=== PATIENT | female | born 2000 | race Caucasian/White ===

== ENCOUNTER 2018-10-20 20:32 | Inpatient (IN) ==
[2018-10-20] MEDS ORDERED: PENICILLIN G POTASSIUM 6 MU in DEXTROSE 5% 250 ML IV STA (20:55)
[2018-10-20] MEDS ORDERED: OXYTOCIN 30 UNITS/500 ML BAG IV PRN (20:55)
--- NOTE | 2018-10-20 21:02 | Obstetrical Progress Note ---
Date of Service October 20, 2018 Subjective Admit Note 18 F P0000 at 40 weeks admitted in labor. Cervix 4-5/80/- 2/intact/anterior/vertex. GBS is positive. FHT Cat 1. EFW is 7 lbs. Will admit in active labor.
[2018-10-20 21:21] LABS: Hematocrit (blood only) 37.1 % (37-47); Hemoglobin 12.5 g/dL (12.0-16.0); Mean Corpuscular Volume 95.1 fL (80-100); Mean Platelet Volume 10.3 fL (7.4-10.4); Platelet Count 196 K/uL (130-400); RDW Coefficient of Variation 14.1 % (11.5-14.5); RDW Standard Deviation 48.8 fL (36.4-46.3); White Blood Count 12.03 K/uL (4.8-10.8)
[2018-10-20 21:22] LABS: Mean Corpuscular Hgb Conc 33.7 g/dL (32-36)
[2018-10-20] MEDS: LACTATED RINGER'S 1,000 ML IV PRN (21:49)
--- NOTE | 2018-10-20 22:28 | Anesthesiology Consultation ---
Date of Service October 20, 2018 Assessment & Plan (1) Encounter for pre-operative examination: Chart Review Chart Review: Patient NOT seen in Pre Admission Testing and Acceptable Risk for Labor Epidural Consults Requested none ASA ASA2 Proposed Anesthesia Anesthesia Type: Labor Epidural Risk / Benefits Reviewed With: PT / POA / Parent / Guardian, Accepts Plan and Informed Consent Obtained Additional Notes Pt understands that she is at increased risk of complications due to the history of scoliosis repair. She is willing to accept those risks and is requesting epidural placement. History Height/Weight Height: 5 ft 3 in Weight: 61.689 kg Allergies Allergy/AdvReac Type Severity Reaction Status Date / Time pollen extracts Allergy Unknown sneezing Verified 02/28/18 17:24 running nose ragweed pollen Allergy Unknown itching Verified 02/28/18 17:24 eyes hydromorphone AdvReac Unknown vomiting Verified 10/20/18 21:03 Medications Home Medications Medication Instructions Recorded Confirmed Last Taken PNV cmb#95-ferrous fumarate-FA 1 tab PO DAILY 02/28/18 10/20/18 1 Day Ago [] ~10/19/18 pyridoxine (vitamin B6) [Vitamin 100 mg PO DAILY 02/28/18 10/20/18 Unknown B-6] ferrous sulfate 325 mg PO BID 10/20/18 10/20/18 1 Day Ago ~10/19/18 ondansetron HCl [Zofran] 4 mg PO BID PRN 10/20/18 10/20/18 3 Months Ago ~07/20/18 sertraline [Zoloft] 50 mg PO DAILY 10/20/18 10/20/18 1 Day Ago ~10/19/18 Active Medications Generic Name Dose Route Start Last Admin Trade Name Freq PRN Reason Stop Dose Admin Lactated Ringer's 1,000 mls @ 125 mls/hr 10/20/18 20:55 10/20/18 21:49 Lr IV 10/22/18 20:54 125 mls/hr .Q8H PRN Administration L&D Protocol Protocol NPO Date Last Intake of Fluids: 10/20/18 Time Last Intake of Fluids: 22:40 Date Last Intake of Solids: 10/20/18 Time Last Intake of Solids: 14:00 Past Medical History Medical History Scoliosis (Chronic) Depression Exercise / Class Metabolic Activity II 4-5 Yardwork/Stairs/Walk up hill Negative for chest pain or shortness of breath. Past Surgical History Surgical History History of back surgery Past Anesthesia History No Hx of Anesthesia Complications History of PONV No Hx of PONV and No Hx of Motion Sickness Social History Smoking Status: Never smoker Do You Dip or Chew Tobacco: No Hx Alcohol Use: No Hx Substance Use: No substance use type: does not use Review of Systems history of rods placed for scoliosis - xrays not available Patient denies history of abnormal bleeding or bleeding disorder. Patient denies active use of anticoagulants other than low dose aspirin. Patient denies numbness, tingling or weakness in lower extremities. Physical Exam Vital Signs Last Vital Signs Temp 36.5 C 10/20/18 21:03 Resp 18 10/20/18 21:03 Constitutional not obese (Gravid uterus) ENMT Mouth: no TMJ abnormality and oral opening not small Thyromental Distance: > or= 3.5 Finger Breadths Mallampati Class: II Neck normal visual inspection; neck extension not limited Respiratory normal respiratory effort Auscultation: lungs clear to auscultation bilaterally Cardiovascular Rate/Rhythm: regular rate and regular rhythm Heart Sounds: no murmur Neurologic moves all extremities Motor/Sensory: no sensory deficit Psychiatric Orientation: alert and oriented x 3 Testing Laboratory Results 10/20/18 21:05
[2018-10-20] MEDS ORDERED: NALBUPHINE HCL INJ 10 MG/ML AMP IV PRN (23:21)
[2018-10-20] MEDS ORDERED: DiphenhydrAMINE HCL 50 MG/ML VIAL IV PRN (23:21)
[2018-10-20] MEDS ORDERED: ePHEDrine sulfate 50 MG/ML AMP IV PRN (23:21)
[2018-10-20] MEDS ORDERED: NALOXONE HCL 1 MG in SODIUM CHLORIDE 0.9% 1000ML 1,000 ML IV PRN (23:21)
[2018-10-20] MEDS ORDERED: ONDANSETRON INJ 2 MG/ML 2 ML VIAL IV PRN (23:21)
[2018-10-20] MEDS ORDERED: fentaNYL 2MCG/ML ROPIV 1.25MG/ML 100 ML BAG EPI PRN (23:21)
[2018-10-20] MEDS ORDERED: NALOXONE HCL 0.4 MG/1 ML VIAL/CARP IV PRN (23:21)
[2018-10-20] MEDS ORDERED: fentaNYL citrate 100 MCG/2 ML VIAL ONE (23:25)
[2018-10-20] MEDS ORDERED: ePHEDrine sulfate 50 MG/ML AMP ONE (23:25)
[2018-10-20] MEDS ORDERED: BUPIVACAINE 0.25% 30 ML VIAL ONE (23:25)
[2018-10-20] MEDS ORDERED: fentaNYL 2MCG/ML ROPIV 1.25MG/ML 100 ML BAG EPI ONE (23:26)
[2018-10-21] MEDS ORDERED: CALCIUM CARBONATE 500 MG CHEWABLE TAB PO PRN (00:33)
[2018-10-21] MEDS ORDERED: CALCIUM CARBONATE 500 MG CHEWABLE TAB ONE (00:39)
[2018-10-21] MEDS: PENICILLIN G POTASSIUM 3 MU in DEXTROSE 5% 100 ML IV PRN ×3 (01:45→09:41)
--- NOTE | 2018-10-21 02:33 | Obstetrical Progress Note ---
Date of Service October 21, 2018 Physical Exam Genitourinary: Manual OB Exam: + cervical dilation 6 cm, + cervical effacement 100%, + station -1 and + amniotic fluid clear OB Exam Monitor Tracing: + external FHT monitor used, + external uterine monitor used, + category I and + normal FHT variability AROM with amni-hook clear fluid Results & Data Vital Signs (Past 12 Hours) Vital Signs Temp Pulse Resp BP Pulse Ox 10/21/18 02:30 64 123/69 10/21/18 02:28 78 95 10/21/18 02:23 63 96 10/21/18 02:18 62 96 10/21/18 02:14 64 106/58 L 10/21/18 02:13 64 96 10/21/18 02:08 65 96 10/21/18 02:03 66 96 10/21/18 01:59 67 110/58 L 10/21/18 01:58 69 97 10/21/18 01:53 75 98 10/21/18 01:48 72 97 10/21/18 01:46 78 106/55 L 10/21/18 01:43 66 96 10/21/18 01:38 72 96 10/21/18 01:33 81 97 10/21/18 01:30 36.9 C 67 18 110/57 L 10/21/18 01:28 67 96 10/21/18 01:23 70 97 10/21/18 01:18 70 98 10/21/18 01:01 74 102/56 L 10/21/18 01:00 64 18 96 10/21/18 00:55 69 96 10/21/18 00:50 68 97 10/21/18 00:45 82 97 10/21/18 00:44 84 105/59 L 10/21/18 00:40 73 97 10/21/18 00:35 75 97 10/21/18 00:30 78 96 10/21/18 00:29 81 106/57 L 10/21/18 00:25 73 97 10/21/18 00:20 75 97 10/21/18 00:16 78 114/57 L 10/21/18 00:15 73 18 97 10/21/18 00:10 97 H 98 10/21/18 00:05 101 H 99 10/21/18 00:00 82 97 10/20/18 23:59 83 94/55 L 10/20/18 23:58 18 10/20/18 23:55 95 H 99 10/20/18 23:50 92 H 97 10/20/18 23:46 88 98/55 L 10/20/18 23:45 91 H 96 10/20/18 23:40 36.9 C 88 18 96 10/20/18 23:35 103 H 97 10/20/18 23:30 89 97 10/20/18 23:28 93 H 98/54 L 10/20/18 23:25 95 H 96 10/20/18 23:23 100 H 106/52 L 10/20/18 23:20 92 H 96 10/20/18 23:18 86 111/57 L 10/20/18 23:15 92 H 97 10/20/18 23:13 83 112/58 L 10/20/18 23:10 88 97 10/20/18 23:05 101 H 96 10/20/18 23:00 89 97 10/20/18 22:55 108 H 96 10/20/18 22:50 81 97 10/20/18 22:45 143 H 97 10/20/18 21:03 36.5 C 18
[2018-10-21] MEDS: LACTATED RINGER'S 1,000 ML IV PRN ×2 (06:46→09:09)
[2018-10-21] MEDS ORDERED: OXYTOCIN 30 UNITS/500 ML BAG IV PRN ×2 (07:29→12:28)
--- NOTE | 2018-10-21 07:29 | Obstetrical Progress Note ---
Date of Service October 21, 2018 Subjective Patient is seen and examined She is a 18 yo AT 40.1 wks, admitted last night for labor Received epidural for pain GBS +, received 3 doses of PCN by now VSS Afebrile Comfortable VE: 7/ 70%/ 0 to +1, coned head FHR categ I [place]: q3-4 min Plan to monitor, augment with pitocin of no change in cervix All questions were answered Results & Data Vital Signs (Past 12 Hours) Vital Signs Temp Pulse Resp BP Pulse Ox 10/21/18 07:23 77 98 10/21/18 07:18 79 97 10/21/18 07:13 87 97 10/21/18 07:08 78 97 10/21/18 07:03 69 97 10/21/18 07:00 73 108/57 L 10/21/18 06:58 74 97 10/21/18 06:53 92 H 96 10/21/18 06:48 82 96 10/21/18 06:43 81 96 10/21/18 06:38 71 99 10/21/18 06:33 67 100 10/21/18 06:30 36.4 C L 77 18 95/53 L 10/21/18 06:28 72 99 10/21/18 06:23 82 99 10/21/18 06:18 85 99 10/21/18 06:13 74 99 10/21/18 06:08 86 100 10/21/18 06:03 79 99 10/21/18 06:01 54 L 101/55 L 10/21/18 05:58 58 L 99 10/21/18 05:53 62 99 10/21/18 05:48 60 99 10/21/18 05:43 70 100 10/21/18 05:38 59 L 99 10/21/18 05:33 56 L 99 10/21/18 05:29 59 L 105/59 L 10/21/18 05:28 58 L 99 10/21/18 05:23 53 L 99 10/21/18 05:18 60 99 10/21/18 05:14 59 L 103/57 L 10/21/18 05:13 59 L 99 10/21/18 05:08 67 99 10/21/18 05:03 57 L 99 10/21/18 05:00 53 L 108/59 L 10/21/18 04:58 69 99 10/21/18 04:53 71 99 10/21/18 04:48 92 H 98 10/21/18 04:45 36.8 C 68 18 92/54 L 10/21/18 04:43 63 98 10/21/18 04:38 72 99 10/21/18 04:33 66 98 10/21/18 04:30 68 85/51 L 10/21/18 04:28 67 98 10/21/18 04:23 72 98 10/21/18 04:18 61 98 10/21/18 04:14 61 100/52 L 10/21/18 04:13 61 98 10/21/18 04:08 61 98 10/21/18 04:03 59 L 98 10/21/18 04:00 56 L 103/52 L 10/21/18 03:58 56 L 98 10/21/18 03:53 60 99 10/21/18 03:48 60 98 10/21/18 03:46 59 L 102/54 L 10/21/18 03:43 59 L 98 10/21/18 03:38 57 L 99 10/21/18 03:33 56 L 99 10/21/18 03:29 57 L 105/57 L 10/21/18 03:28 57 L 98 10/21/18 03:23 63 96 10/21/18 03:18 62 96 10/21/18 03:14 57 L 98/53 L 10/21/18 03:13 61 95 10/21/18 03:08 62 96 10/21/18 03:03 62 96 10/21/18 03:00 36.9 C 63 18 103/57 L 10/21/18 02:58 62 95 10/21/18 02:53 66 96 10/21/18 02:48 61 96 10/21/18 02:44 60 106/55 L 10/21/18 02:43 63 96 10/21/18 02:38 77 96 10/21/18 02:33 72 96 10/21/18 02:30 64 123/69 10/21/18 02:28 78 95 10/21/18 02:23 63 96 10/21/18 02:18 62 96 10/21/18 02:14 64 106/58 L 10/21/18 02:13 64 96 10/21/18 02:08 65 96 10/21/18 02:03 66 96 10/21/18 01:59 67 110/58 L 10/21/18 01:58 69 97 10/21/18 01:53 75 98 10/21/18 01:48 72 97 10/21/18 01:46 78 106/55 L 10/21/18 01:43 66 96 10/21/18 01:38 72 96 10/21/18 01:33 81 97 10/21/18 01:30 36.9 C 67 18 110/57 L 10/21/18 01:28 67 96 10/21/18 01:23 70 97 10/21/18 01:18 70 98 10/21/18 01:01 74 102/56 L 10/21/18 01:00 64 18 96 10/21/18 00:55 69 96 10/21/18 00:50 68 97 10/21/18 00:45 82 97 10/21/18 00:44 84 105/59 L 10/21/18 00:40 73 97 10/21/18 00:35 75 97 10/21/18 00:30 78 96 10/21/18 00:29 81 106/57 L 10/21/18 00:25 73 97 10/21/18 00:20 75 97 10/21/18 00:16 78 114/57 L 10/21/18 00:15 73 18 97 10/21/18 00:10 97 H 98 10/21/18 00:05 101 H 99 10/21/18 00:00 82 97 10/20/18 23:59 83 94/55 L 10/20/18 23:58 18 10/20/18 23:55 95 H 99 10/20/18 23:50 92 H 97 10/20/18 23:46 88 98/55 L 10/20/18 23:45 91 H 96 10/20/18 23:40 36.9 C 88 18 96 10/20/18 23:35 103 H 97 10/20/18 23:30 89 97 10/20/18 23:28 93 H 98/54 L 10/20/18 23:25 95 H 96 10/20/18 23:23 100 H 106/52 L 10/20/18 23:20 92 H 96 10/20/18 23:18 86 111/57 L 10/20/18 23:15 92 H 97 10/20/18 23:13 83 112/58 L 10/20/18 23:10 88 97 10/20/18 23:05 101 H 96 10/20/18 23:00 89 97 10/20/18 22:55 108 H 96 10/20/18 22:50 81 97 10/20/18 22:45 143 H 97 10/20/18 21:03 36.5 C 18
--- NOTE | 2018-10-21 08:26 | Obstetrical Progress Note ---
Date of Service October 21, 2018 Subjective FHR had decel to low 90-100's, still good variability and accels IVF bolus and Nasal O2 stared VE; unchanged, FSE applied, FHR had accel with scalp stimulation and good variability Mcclure catheter is placed Continue to monitor closely Results & Data Vital Signs (Past 12 Hours) Vital Signs Temp Pulse Resp BP Pulse Ox 10/21/18 08:18 75 97 10/21/18 08:13 88 98 10/21/18 08:08 81 97 10/21/18 08:03 75 98 10/21/18 08:00 77 112/57 L 10/21/18 07:58 71 97 10/21/18 07:53 70 97 10/21/18 07:48 85 98 10/21/18 07:43 70 97 10/21/18 07:38 81 98 10/21/18 07:33 75 97 10/21/18 07:31 75 116/57 L 10/21/18 07:28 81 99 10/21/18 07:23 77 98 10/21/18 07:18 79 97 10/21/18 07:13 87 97 10/21/18 07:08 78 97 10/21/18 07:05 36.4 C L 18 10/21/18 07:03 69 97 10/21/18 07:00 73 108/57 L 10/21/18 06:58 74 97 10/21/18 06:53 92 H 96 10/21/18 06:48 82 96 10/21/18 06:43 81 96 10/21/18 06:38 71 99 10/21/18 06:33 67 100 10/21/18 06:30 36.4 C L 77 18 95/53 L 10/21/18 06:28 72 99 10/21/18 06:23 82 99 10/21/18 06:18 85 99 10/21/18 06:13 74 99 10/21/18 06:08 86 100 10/21/18 06:03 79 99 10/21/18 06:01 54 L 101/55 L 10/21/18 05:58 58 L 99 10/21/18 05:53 62 99 10/21/18 05:48 60 99 10/21/18 05:43 70 100 10/21/18 05:38 59 L 99 10/21/18 05:33 56 L 99 08/06/19 05:29 59 L 105/59 L 10/21/18 05:28 58 L 99 10/21/18 05:23 53 L 99 10/21/18 05:18 60 99 10/21/18 05:14 59 L 103/57 L 10/21/18 05:13 59 L 99 10/21/18 05:08 67 99 10/21/18 05:03 57 L 99 10/21/18 05:00 53 L 108/59 L 10/21/18 04:58 69 99 10/21/18 04:53 71 99 10/21/18 04:48 92 H 98 10/21/18 04:45 36.8 C 68 18 92/54 L 10/21/18 04:43 63 98 10/21/18 04:38 72 99 10/21/18 04:33 66 98 10/21/18 04:30 68 85/51 L 10/21/18 04:28 67 98 10/21/18 04:23 72 98 10/21/18 04:18 61 98 10/21/18 04:14 61 100/52 L 10/21/18 04:13 61 98 10/21/18 04:08 61 98 10/21/18 04:03 59 L 98 10/21/18 04:00 56 L 103/52 L 10/21/18 03:58 56 L 98 10/21/18 03:53 60 99 10/21/18 03:48 60 98 10/21/18 03:46 59 L 102/54 L 10/21/18 03:43 59 L 98 10/21/18 03:38 57 L 99 10/21/18 03:33 56 L 99 10/21/18 03:29 57 L 105/57 L 10/21/18 03:28 57 L 98 10/21/18 03:23 63 96 10/21/18 03:18 62 96 10/21/18 03:14 57 L 98/53 L 10/21/18 03:13 61 95 10/21/18 03:08 62 96 10/21/18 03:03 62 96 10/21/18 03:00 36.9 C 63 18 103/57 L 10/21/18 02:58 62 95 10/21/18 02:53 66 96 10/21/18 02:48 61 96 10/21/18 02:44 60 106/55 L 10/21/18 02:43 63 96 10/21/18 02:38 77 96 10/21/18 02:33 72 96 10/21/18 02:30 64 123/69 10/21/18 02:28 78 95 10/21/18 02:23 63 96 10/21/18 02:18 62 96 10/21/18 02:14 64 106/58 L 10/21/18 02:13 64 96 10/21/18 02:08 65 96 10/21/18 02:03 66 96 10/21/18 01:59 67 110/58 L 10/21/18 01:58 69 97 10/21/18 01:53 75 98 10/21/18 01:48 72 97 10/21/18 01:46 78 106/55 L 10/21/18 01:43 66 96 10/21/18 01:38 72 96 10/21/18 01:33 81 97 10/21/18 01:30 36.9 C 67 18 110/57 L 10/21/18 01:28 67 96 10/21/18 01:23 70 97 10/21/18 01:18 70 98 10/21/18 01:01 74 102/56 L 10/21/18 01:00 64 18 96 10/21/18 00:55 69 96 10/21/18 00:50 68 97 10/21/18 00:45 82 97 10/21/18 00:44 84 105/59 L 10/21/18 00:40 73 97 10/21/18 00:35 75 97 10/21/18 00:30 78 96 10/21/18 00:29 81 106/57 L 10/21/18 00:25 73 97 10/21/18 00:20 75 97 10/21/18 00:16 78 114/57 L 10/21/18 00:15 73 18 97 10/21/18 00:10 97 H 98 10/21/18 00:05 101 H 99 10/21/18 00:00 82 97 10/20/18 23:59 83 94/55 L 10/20/18 23:58 18 10/20/18 23:55 95 H 99 10/20/18 23:50 92 H 97 10/20/18 23:46 88 98/55 L 10/20/18 23:45 91 H 96 10/20/18 23:40 36.9 C 88 18 96 10/20/18 23:35 103 H 97 10/20/18 23:30 89 97 10/20/18 23:28 93 H 98/54 L 10/20/18 23:25 95 H 96 10/20/18 23:23 100 H 106/52 L 10/20/18 23:20 92 H 96 10/20/18 23:18 86 111/57 L 10/20/18 23:15 92 H 97 10/20/18 23:13 83 112/58 L 10/20/18 23:10 88 97 10/20/18 23:05 101 H 96 10/20/18 23:00 89 97 10/20/18 22:55 108 H 96 10/20/18 22:50 81 97 10/20/18 22:45 143 H 97 10/20/18 21:03 36.5 C 18
--- NOTE | 2018-10-21 10:28 | Obstetrical Progress Note ---
Date of Service October 21, 2018 Subjective FHR had low baseline 100-110 and she was found to be fully dilated Started pushing with ctxs, HFR having accels to 150-160's with good variability and return to baseline and moderate variability Head at +2 station, coned,anterior fontanelle at 3 o'clock position, attemp for internal rotation of the head to OA but failed Will continue to monitor closely Results & Data Vital Signs (Past 12 Hours) Vital Signs Temp Pulse Resp BP Pulse Ox 10/21/18 10:23 71 100 10/21/18 10:18 72 100 10/21/18 10:13 77 99 10/21/18 10:08 71 100 10/21/18 10:03 78 97 10/21/18 10:01 115 H 103/54 L 10/21/18 09:58 79 99 10/21/18 09:53 133 H 99 10/21/18 09:48 106 H 97 10/21/18 09:43 89 97 10/21/18 09:38 95 H 99 10/21/18 09:33 85 98 10/21/18 09:30 92 H 134/61 10/21/18 09:28 88 96 10/21/18 09:23 86 97 10/21/18 09:18 88 98 10/21/18 09:13 85 99 10/21/18 09:08 79 99 10/21/18 09:03 60 100 10/21/18 09:00 36.9 C 60 18 107/59 L 10/21/18 08:58 64 100 10/21/18 08:53 60 100 10/21/18 08:48 65 100 10/21/18 08:43 64 99 10/21/18 08:38 65 99 10/21/18 08:33 60 99 10/21/18 08:31 60 106/57 L 10/21/18 08:30 18 10/21/18 08:28 63 100 10/21/18 08:23 70 99 10/21/18 08:18 75 97 10/21/18 08:13 88 98 10/21/18 08:08 81 97 10/21/18 08:03 75 98 10/21/18 08:00 77 20 112/57 L 10/21/18 07:58 71 97 10/21/18 07:53 70 97 10/21/18 07:48 85 98 10/21/18 07:43 70 97 10/21/18 07:38 81 98 10/21/18 07:33 75 97 10/21/18 07:31 75 116/57 L 10/21/18 07:30 18 10/21/18 07:28 81 99 10/21/18 07:23 77 98 10/21/18 07:18 79 97 10/21/18 07:13 87 97 10/21/18 07:08 78 97 10/21/18 07:05 36.4 C L 18 10/21/18 07:03 69 97 10/21/18 07:00 73 108/57 L 10/21/18 06:58 74 97 10/21/18 06:53 92 H 96 10/21/18 06:48 82 96 10/21/18 06:43 81 96 10/21/18 06:38 71 99 10/21/18 06:33 67 100 10/21/18 06:30 36.4 C L 77 18 95/53 L 10/21/18 06:28 72 99 10/21/18 06:23 82 99 10/21/18 06:18 85 99 10/21/18 06:13 74 99 10/21/18 06:08 86 100 10/21/18 06:03 79 99 10/21/18 06:01 54 L 101/55 L 10/21/18 05:58 58 L 99 10/21/18 05:53 62 99 10/21/18 05:48 60 99 10/21/18 05:43 70 100 10/21/18 05:38 59 L 99 10/21/18 05:33 56 L 99 10/21/18 05:29 59 L 105/59 L 10/21/18 05:28 58 L 99 10/21/18 05:23 53 L 99 10/21/18 05:18 60 99 10/21/18 05:14 59 L 103/57 L 10/21/18 05:13 59 L 99 10/21/18 05:08 67 99 10/21/18 05:03 57 L 99 10/21/18 05:00 53 L 108/59 L 10/21/18 04:58 69 99 10/21/18 04:53 71 99 10/21/18 04:48 92 H 98 10/21/18 04:45 36.8 C 68 18 92/54 L 10/21/18 04:43 63 98 10/21/18 04:38 72 99 10/21/18 04:33 66 98 10/21/18 04:30 68 85/51 L 10/21/18 04:28 67 98 10/21/18 04:23 72 98 10/21/18 04:18 61 98 10/21/18 04:14 61 100/52 L 10/21/18 04:13 61 98 10/21/18 04:08 61 98 10/21/18 04:03 59 L 98 10/21/18 04:00 56 L 103/52 L 10/21/18 03:58 56 L 98 10/21/18 03:53 60 99 10/21/18 03:48 60 98 10/21/18 03:46 59 L 102/54 L 10/21/18 03:43 59 L 98 10/21/18 03:38 57 L 99 10/21/18 03:33 56 L 99 10/21/18 03:29 57 L 105/57 L 10/21/18 03:28 57 L 98 10/21/18 03:23 63 96 10/21/18 03:18 62 96 10/21/18 03:14 57 L 98/53 L 10/21/18 03:13 61 95 10/21/18 03:08 62 96 10/21/18 03:03 62 96 10/21/18 03:00 36.9 C 63 18 103/57 L 10/21/18 02:58 62 95 10/21/18 02:53 66 96 10/21/18 02:48 61 96 10/21/18 02:44 60 106/55 L 10/21/18 02:43 63 96 10/21/18 02:38 77 96 10/21/18 02:33 72 96 10/21/18 02:30 64 123/69 10/21/18 02:28 78 95 10/21/18 02:23 63 96 10/21/18 02:18 62 96 10/21/18 02:14 64 106/58 L 10/21/18 02:13 64 96 10/21/18 02:08 65 96 10/21/18 02:03 66 96 10/21/18 01:59 67 110/58 L 10/21/18 01:58 69 97 10/21/18 01:53 75 98 10/21/18 01:48 72 97 10/21/18 01:46 78 106/55 L 10/21/18 01:43 66 96 10/21/18 01:38 72 96 10/21/18 01:33 81 97 10/21/18 01:30 36.9 C 67 18 110/57 L 10/21/18 01:28 67 96 10/21/18 01:23 70 97 10/21/18 01:18 70 98 10/21/18 01:01 74 102/56 L 10/21/18 01:00 64 18 96 10/21/18 00:55 69 96 10/21/18 00:50 68 97 10/21/18 00:45 82 97 10/21/18 00:44 84 105/59 L 10/21/18 00:40 73 97 10/21/18 00:35 75 97 10/21/18 00:30 78 96 10/21/18 00:29 81 106/57 L 10/21/18 00:25 73 97 10/21/18 00:20 75 97 10/21/18 00:16 78 114/57 L 10/21/18 00:15 73 18 97 10/21/18 00:10 97 H 98 10/21/18 00:05 101 H 99 10/21/18 00:00 82 97 10/20/18 23:59 83 94/55 L 10/20/18 23:58 18 10/20/18 23:55 95 H 99 10/20/18 23:50 92 H 97 10/20/18 23:46 88 98/55 L 10/20/18 23:45 91 H 96 10/20/18 23:40 36.9 C 88 18 96 10/20/18 23:35 103 H 97 10/20/18 23:30 89 97 10/20/18 23:28 93 H 98/54 L 10/20/18 23:25 95 H 96 10/20/18 23:23 100 H 106/52 L 10/20/18 23:20 92 H 96 10/20/18 23:18 86 111/57 L 10/20/18 23:15 92 H 97 10/20/18 23:13 83 112/58 L 10/20/18 23:10 88 97 10/20/18 23:05 101 H 96 10/20/18 23:00 89 97 10/20/18 22:55 108 H 96 10/20/18 22:50 81 97 10/20/18 22:45 143 H 97
--- NOTE | 2018-10-21 11:12 | Obstetrical Progress Note ---
Date of Service October 21, 2018 Subjective Patient has been pushing with her mother at bed side VE unchanged, attempted rotation from LOP to OA but baby turned back, FHR had a big accel to 150's lasted over 2 minutes with good variability Baseline is 110 Discussed Csection but they like to continue with pushing Will continue to monitor closely and aid with pushing Results & Data Vital Signs (Past 12 Hours) Vital Signs Temp Pulse Resp BP Pulse Ox 10/21/18 11:08 71 99 10/21/18 11:03 79 99 10/21/18 10:58 82 100 10/21/18 10:53 71 100 10/21/18 10:48 101 H 100 10/21/18 10:43 83 100 10/21/18 10:38 91 H 100 10/21/18 10:35 84 116/58 L 10/21/18 10:33 109 H 100 10/21/18 10:30 80 89/57 L 10/21/18 10:28 82 100 10/21/18 10:23 71 100 10/21/18 10:18 72 100 10/21/18 10:13 77 99 10/21/18 10:08 71 100 10/21/18 10:03 78 97 10/21/18 10:01 115 H 103/54 L 10/21/18 09:58 79 99 10/21/18 09:53 133 H 99 10/21/18 09:48 106 H 97 10/21/18 09:43 89 97 10/21/18 09:38 95 H 99 10/21/18 09:33 85 98 10/21/18 09:30 92 H 134/61 10/21/18 09:28 88 96 10/21/18 09:23 86 97 10/21/18 09:18 88 98 10/21/18 09:13 85 99 10/21/18 09:08 79 99 10/21/18 09:03 60 100 10/21/18 09:00 36.9 C 60 18 107/59 L 10/21/18 08:58 64 100 10/21/18 08:53 60 100 10/21/18 08:48 65 100 10/21/18 08:43 64 99 10/21/18 08:38 65 99 10/21/18 08:33 60 99 10/21/18 08:31 60 106/57 L 10/21/18 08:30 18 10/21/18 08:28 63 100 10/21/18 08:23 70 99 10/21/18 08:18 75 97 10/21/18 08:13 88 98 10/21/18 08:08 81 97 10/21/18 08:03 75 98 10/21/18 08:00 77 20 112/57 L 10/21/18 07:58 71 97 10/21/18 07:53 70 97 10/21/18 07:48 85 98 10/21/18 07:43 70 97 10/21/18 07:38 81 98 10/21/18 07:33 75 97 10/21/18 07:31 75 116/57 L 10/21/18 07:30 18 10/21/18 07:28 81 99 10/21/18 07:23 77 98 10/21/18 07:18 79 97 10/21/18 07:13 87 97 10/21/18 07:08 78 97 10/21/18 07:05 36.4 C L 18 10/21/18 07:03 69 97 10/21/18 07:00 73 108/57 L 10/21/18 06:58 74 97 10/21/18 06:53 92 H 96 10/21/18 06:48 82 96 10/21/18 06:43 81 96 10/21/18 06:38 71 99 10/21/18 06:33 67 100 10/21/18 06:30 36.4 C L 77 18 95/53 L 10/21/18 06:28 72 99 10/21/18 06:23 82 99 10/21/18 06:18 85 99 10/21/18 06:13 74 99 10/21/18 06:08 86 100 10/21/18 06:03 79 99 10/21/18 06:01 54 L 101/55 L 10/21/18 05:58 58 L 99 10/21/18 05:53 62 99 10/21/18 05:48 60 99 10/21/18 05:43 70 100 10/21/18 05:38 59 L 99 10/21/18 05:33 56 L 99 10/21/18 05:29 59 L 105/59 L 10/21/18 05:28 58 L 99 10/21/18 05:23 53 L 99 10/21/18 05:18 60 99 10/21/18 05:14 59 L 103/57 L 10/21/18 05:13 59 L 99 10/21/18 05:08 67 99 10/21/18 05:03 57 L 99 10/21/18 05:00 53 L 108/59 L 10/21/18 04:58 69 99 10/21/18 04:53 71 99 10/21/18 04:48 92 H 98 10/21/18 04:45 36.8 C 68 18 92/54 L 10/21/18 04:43 63 98 10/21/18 04:38 72 99 10/21/18 04:33 66 98 10/21/18 04:30 68 85/51 L 10/21/18 04:28 67 98 10/21/18 04:23 72 98 10/21/18 04:18 61 98 10/21/18 04:14 61 100/52 L 10/21/18 04:13 61 98 10/21/18 04:08 61 98 10/21/18 04:03 59 L 98 10/21/18 04:00 56 L 103/52 L 10/21/18 03:58 56 L 98 10/21/18 03:53 60 99 10/21/18 03:48 60 98 10/21/18 03:46 59 L 102/54 L 10/21/18 03:43 59 L 98 10/21/18 03:38 57 L 99 10/21/18 03:33 56 L 99 10/21/18 03:29 57 L 105/57 L 10/21/18 03:28 57 L 98 10/21/18 03:23 63 96 10/21/18 03:18 62 96 10/21/18 03:14 57 L 98/53 L 10/21/18 03:13 61 95 10/21/18 03:08 62 96 10/21/18 03:03 62 96 10/21/18 03:00 36.9 C 63 18 103/57 L 10/21/18 02:58 62 95 10/21/18 02:53 66 96 10/21/18 02:48 61 96 10/21/18 02:44 60 106/55 L 10/21/18 02:43 63 96 10/21/18 02:38 77 96 10/21/18 02:33 72 96 10/21/18 02:30 64 123/69 10/21/18 02:28 78 95 10/21/18 02:23 63 96 10/21/18 02:18 62 96 10/21/18 02:14 64 106/58 L 10/21/18 02:13 64 96 10/21/18 02:08 65 96 10/21/18 02:03 66 96 10/21/18 01:59 67 110/58 L 10/21/18 01:58 69 97 10/21/18 01:53 75 98 10/21/18 01:48 72 97 10/21/18 01:46 78 106/55 L 10/21/18 01:43 66 96 10/21/18 01:38 72 96 10/21/18 01:33 81 97 10/21/18 01:30 36.9 C 67 18 110/57 L 10/21/18 01:28 67 96 10/21/18 01:23 70 97 10/21/18 01:18 70 98 10/21/18 01:01 74 102/56 L 10/21/18 01:00 64 18 96 10/21/18 00:55 69 96 10/21/18 00:50 68 97 10/21/18 00:45 82 97 10/21/18 00:44 84 105/59 L 10/21/18 00:40 73 97 10/21/18 00:35 75 97 10/21/18 00:30 78 96 10/21/18 00:29 81 106/57 L 10/21/18 00:25 73 97 10/21/18 00:20 75 97 10/21/18 00:16 78 114/57 L 10/21/18 00:15 73 18 97 10/21/18 00:10 97 H 98 10/21/18 00:05 101 H 99 10/21/18 00:00 82 97 10/20/18 23:59 83 94/55 L 10/20/18 23:58 18 10/20/18 23:55 95 H 99 10/20/18 23:50 92 H 97 10/20/18 23:46 88 98/55 L 10/20/18 23:45 91 H 96 10/20/18 23:40 36.9 C 88 18 96 10/20/18 23:35 103 H 97 10/20/18 23:30 89 97 10/20/18 23:28 93 H 98/54 L 10/20/18 23:25 95 H 96 10/20/18 23:23 100 H 106/52 L 10/20/18 23:20 92 H 96 10/20/18 23:18 86 111/57 L 10/20/18 23:15 92 H 97 10/20/18 23:13 83 112/58 L 10/20/18 23:10 88 97
[2018-10-21] MEDS ORDERED: CEFAZOLIN 250 MG/ML 1 GM VIAL IV STA (11:42)
[2018-10-21] MEDS ORDERED: CEFAZOLIN 2000MG 2,000 MG/15 ML SYR IV ONE (12:00)
[2018-10-21] MEDS ORDERED: HYDROCORTISONE ACETATE 25 MG SUPP PR PRN (12:28)
[2018-10-21] MEDS ORDERED: SUPERCREAM 0.870% 15 GM JAR EXT PRN (12:28)
[2018-10-21] MEDS ORDERED: MEASLES, MUMPS & RUBELLA VIRUS VIAL SQ ONE (12:28)
[2018-10-21] MEDS ORDERED: DIPHTHERIA/TETANUS/PERTUSSIS 0.5 ML SYR/VIAL IM ONE (12:28)
[2018-10-21] MEDS ORDERED: BENZOCAINE 20% AER SPR 82.5 GM CAN EXT PRN (12:28)
[2018-10-21] MEDS ORDERED: MAGNESIUM HYDROXIDE SUSP 30 ML UDC PO PRN (12:28)
--- NOTE | 2018-10-21 13:47 | Anesthesia Procedure Note ---
Date of Service October 21, 2018 Anesthesia Post Epidural Note Vital Signs Vital Signs: Temp Pulse Resp BP Pulse Ox 37.2 C 99 H 20 104/58 L 100 10/21/18 11:02 10/21/18 13:32 10/21/18 13:32 10/21/18 13:32 10/21/18 11:33 Notes Mental Status: alert / awake / arousable and participated in evaluation Nausea / Vomiting: adequately controlled Pain: adequately controlled Airway Patency, RR, SpO2: stable & adequate BP & HR: stable & adequate Hydration State: stable & adequate Neuraxial Anesthesia: was administered and sensory block is resolving Anesthetic Complications: no major complications apparent Epidural: Removed without complications and With tip intact
[2018-10-21] MEDS: IBUPROFEN 600 MG TAB PO PRN ×2 (14:05→23:23)
[2018-10-21] MEDS: OXYCODONE/ACETAMINOPHEN 5mg/325mg TAB PO PRN (14:45)
[2018-10-21] MEDS ORDERED: OXYTOCIN 20 UNITS in LACTATED RINGER'S 1,000 ML IV SCH (15:45)
[2018-10-21] MEDS ORDERED: BISACODYL 5 MG TABEC PO SCH (21:00)
[2018-10-21] MEDS: DOCUSATE SODIUM 100 MG CAP PO SCH (21:17)
--- NOTE | 2018-10-21 22:32 | Delivery Summary ---
DATE OF OPERATION: 10/21/2018 TIME OF DELIVERY OF BABY: 11:35 a.m. TIME OF DELIVERY OF PLACENTA: 11:48 a.m. DETAILS OF DELIVERY: The patient was found to be fully dilated and desired to push. She pushed for about 1 and 1/2 hours and delivered the head without difficulty. There was body cord around the left shoulder and it was reduced while delivering the shoulders with minimal traction and baby was handed off to the mother. The mouth and nose were suctioned. Cord was clamped x2 and cut at 1-minute delay. Baby was vigorously crying and moving. Cord blood was obtained. Vagina and perineum were checked for lacerations. There was a third-degree perineal laceration, which was confirmed with rectal exam. With the Allis clamps, the sphincter muscle edges were found and grasped and brought to the midline. Gloves were changed and with the surgery aide assisting these sphincter muscles were repaired with U-type sutures x3 and then the rectal exam was repeated. Excellent sphincter tone was noted and no sutures were felt. Gloves were changed. Rest of the vaginal mucosa, perineal body muscles, bulbocavernosus muscles were reapproximated with 2-0 Vicryl in a running fashion, skin in a subcuticular fashion. Then the placenta was found to be in the vagina, delivered spontaneous as intact and complete. Uterus was explored and found to be empty. Lower segment was cleared of all clots and debris. Fundus was firm. EBL was 300 mL. Rest of the vagina was intact. The mom and baby tolerated the procedure well. Baby was a viable female infant, Apgars 8/9, weight is 3655 gr. No complications happened. I was present during whole procedure. At the end of the procedure, sponge, needle, instrument count was correct x2. She was given 1 dose of Cefazolin IV. I attest to the content of the Intraoperative Record and any orders documented therein. Any exceptions are noted below. MTDD
[2018-10-22] MEDS: ACETAMINOPHEN 325 MG TAB PO PRN ×3 (02:15→18:18)
[2018-10-22 06:33] LABS: Hematocrit (blood only) 30.2 % (37-47); Hemoglobin 9.8 g/dL (12.0-16.0); Mean Corpuscular Hgb Conc 32.5 g/dL (32-36); Mean Platelet Volume 9.6 fL (7.4-10.4); Platelet Count 167 K/uL (130-400); RDW Coefficient of Variation 14.4 % (11.5-14.5); RDW Standard Deviation 52.1 fL (36.4-46.3); Red Blood Count 3.05 M/uL (4.2-5.4); White Blood Count 19.28 K/uL (4.8-10.8)
[2018-10-22] MEDS: PRENATAL VITAMIN 1 TAB PO SCH (08:09)
[2018-10-22] MEDS: DOCUSATE SODIUM 100 MG CAP PO SCH ×2 (08:09→19:48)
[2018-10-22] MEDS: FERROUS SULFATE 325 MG TAB PO SCH (08:10)
[2018-10-22] MEDS: IBUPROFEN 600 MG TAB PO PRN ×3 (08:10→16:24)
--- NOTE | 2018-10-22 09:49 | Obstetrical Progress Note ---
Date of Service October 22, 2018 Physical Exam Physical Exam: abdomen soft and non tender vaginal bleeding scant hgb 9.8 no calf tenderness ambulating well Results & Data Vital Signs (Past 12 Hours) Vital Signs Temp Pulse Pulse Resp BP BP Pulse Ox 10/22/18 08:00 36.8 C 91 H 20 95/59 L 97 10/22/18 03:55 36.8 C 89 18 108/62 10/22/18 00:53 36.9 C 105 H 18 99/63 L
[2018-10-23] MEDS: IBUPROFEN 600 MG TAB PO PRN ×3 (00:21→15:27)
[2018-10-23] MEDS: OXYCODONE/ACETAMINOPHEN 5mg/325mg TAB PO PRN ×2 (00:21→05:27)
[2018-10-23] MEDS: DOCUSATE SODIUM 100 MG CAP PO SCH (08:00)
[2018-10-23] MEDS: FERROUS SULFATE 325 MG TAB PO SCH (08:00)
[2018-10-23] MEDS: PRENATAL VITAMIN 1 TAB PO SCH (08:00)
[2018-10-23 08:26] LABS: Basophils # (auto) 0.02 K/uL (0-0.2); Basophils % (auto) 0.1 %; Eosinophils # (auto) 0.18 K/uL (0-0.5); Eosinophils % (auto) 1.2 %; Hematocrit (blood only) 24.8 % (37-47); Hemoglobin 8.2 g/dL (12.0-16.0); Immature Granulocytes % (auto) 0.7 %; Lymphocytes # (auto) 2.55 K/uL (1.2-3.4); Lymphocytes % (auto) 17.2 %; Mean Corpuscular Hgb Conc 33.1 g/dL (32-36); Mean Corpuscular Volume 98.8 fL (80-100); Mean Platelet Volume 9.4 fL (7.4-10.4); Monocytes % (auto) 5.4 %; Neutrophils # (auto) 11.17 K/uL (1.4-6.5); Neutrophils % (auto) 75.4 %; Platelet Count 163 K/uL (130-400); RDW Coefficient of Variation 14.3 % (11.5-14.5); RDW Standard Deviation 52.2 fL (36.4-46.3); Red Blood Count 2.51 M/uL (4.2-5.4); White Blood Count 14.82 K/uL (4.8-10.8)
--- NOTE | 2018-10-23 09:42 | Obstetrical Progress Note ---
Date of Service October 23, 2018 Subjective Patient is seen and examined. She feels well, no complaints. Ambulating without dizziness Voiding without difficulty Tolerating regular diet with out N&V Bleeding is minimal No fever/ chills/ CP/ SOB/ N&V/ Leg pain Breast feeding without problems Vital Signs Temp Pulse Resp BP Pulse Ox 10/23/18 08:00 37 C 77 18 101/64 98 10/23/18 05:51 36.5 C 80 16 102/63 100 10/23/18 00:00 36.9 C 76 16 111/66 100 10/22/18 15:40 36.7 C 85 16 102/66 10/22/18 12:00 36.6 C 94 H 18 124/84 97 Intake and Output 10/22/18 10/23/18 10/23/18 22:59 06:59 14:59 Intake Total 625.017 / 625.017 Balance 625.017 / 625.017 Intake: IV 625.017 / 625.017 10/23/18 Range/Units 07:56 WBC 14.82 H (4.8-10.8) K/uL RBC 2.51 L (4.2-5.4) M/uL Hgb 8.2 L (12.0-16.0) g/dL Hct 24.8 L (37-47) % MCV 98.8 (80-100) fL MCH 32.7 (25-34) pg MCHC 33.1 (32-36) g/dL RDW Std Deviation 52.2 H (36.4-46.3) fL RDW Coeff of Vin 14.3 (11.5-14.5) % Plt Count 163 (130-400) K/uL MPV 9.4 (7.4-10.4) fL Immature Gran % (Auto) 0.7 % Neut % (Auto) 75.4 % Lymph % (Auto) 17.2 % [place] % (Auto) 5.4 % Eos % (Auto) 1.2 % Baso % (Auto) 0.1 % Immature Gran # (Auto) 0.10 H (0.00-0.02) K/uL Neut # (Auto) 11.17 H (1.4-6.5) K/uL Lymph # (Auto) 2.55 (1.2-3.4) K/uL [place] # (Auto) 0.80 H (0.11-0.59) K/uL Eos # (Auto) 0.18 (0-0.5) K/uL Baso # (Auto) 0.02 (0-0.2) K/uL PE: General: Alert, orientedx3, NAD Abd: soft, NT, fundus firm, below Umbilicus Perineum intact, Lochia rubra minimal Ext; NT, no edema AP: 18 yo s/p , ppd# 2 VSS Afebrile doing well Continue routine care All questions were answered Discussed when to call D/C home , f/u in office Results & Data Vital Signs (Past 12 Hours) Vital Signs Temp Pulse Resp BP Pulse Ox 10/23/18 08:00 37 C 77 18 101/64 98 10/23/18 05:51 36.5 C 80 16 102/63 100 10/23/18 00:00 36.9 C 76 16 111/66 100
== END 2018-10-23 15:30 | disposition home or self-care (01) | DRG 768 ==
LOC: OPB 20:32 → 4S2 20:32 → 4S1 10-21 01:14 → 4S2 10-21 18:06

== ENCOUNTER 2022-02-12 20:54 | Inpatient (IN) ==
[2022-02-12] MEDS ORDERED: LIDOCAINE 1% LOCAL 20 ML VIAL INFIL PRN (21:29)
[2022-02-12] MEDS ORDERED: OXYTOCIN 30 UNITS/500 ML BAG IV PRN (21:29)
[2022-02-12] MEDS: LACTATED RINGER'S 1,000 ML IV PRN ×2 (21:40→23:09)
[2022-02-12] MEDS ORDERED: ePHEDrine sulfate 50 MG/ML AMP ONE (21:54)
[2022-02-12] MEDS ORDERED: SODIUM CHLORIDE 0.9% INJ 10 ML VIAL ONE (21:55)
[2022-02-12] MEDS ORDERED: LIDOCAINE 2%/EPINEPHRINE 1:200,000 20 ML SDV ONE (21:55)
[2022-02-12] MEDS ORDERED: BUPIVACAINE 0.25% 30 ML VIAL ONE (21:55)
[2022-02-12] MEDS ORDERED: fentaNYL citrate 100 MCG/2 ML VIAL ONE (21:55)
[2022-02-12] MEDS ORDERED: fentaNYL 2MCG/ML ROPIVACAINE 1.25MG/ML 100 ML BAG EPI ONE (21:55)
[2022-02-12 22:08] LABS: Hemoglobin 10.1 g/dl (12.0-16.0); Mean Corpuscular Hemoglobin 30.4 pg (25.0-34.0); Mean Corpuscular Hgb Conc 32.6 g/dL (32.0-36.0); Mean Corpuscular Volume 93.4 fL (80.0-100.0); Mean Platelet Volume 10.1 fL (9.4-12.3); Platelet Count 200 K/uL (130-400); RDW Coefficient of Variation 14.6 % (11.5-14.5); RDW Standard Deviation 49.2 fL (36.4-46.3); Red Blood Count 3.32 M/uL (3.93-5.22); White Blood Count 10.03 K/ul (4.8-10.8)
--- NOTE | 2022-02-12 22:20 | History & Physical Report ---
Date of Service February 12, 2022 Assessment & Plan (1) : Plan: Admit in active labor anticipate normal delivery History of Present Illness Chief Complaint: onset of labor Primary Care Provider: Abdirahman Santiago MD 21 F P2002 at 40.1 weeks admitted in active labor. GBS is negative. Covid is pending. Allergies Allergy/AdvReac Type Severity Reaction Status Date / Time pollen extracts Allergy Unknown sneezing Verified 05/26/20 10:38 running nose ragweed pollen Allergy Unknown itching Verified 05/26/20 10:38 eyes hydromorphone AdvReac Unknown vomiting Verified 05/26/20 10:38 Home Medications Medication Instructions Recorded Confirmed Type vit no.95-ferrous 1 tab PO DAILY 02/28/18 05/26/20 History fumarate 28 mg-folic acid 800 mcg tablet () docusate sodium 100 mg capsule 100 mg PO DAILY@08,21 #60 caps 05/27/20 Rx ferrous sulfate 325 mg (65 mg 325 mg PO BID #60 tabs 05/27/20 Rx iron) tablet,delayed release ibuprofen 600 mg tablet 600 mg PO Q4H PRN pain #30 tabs 05/27/20 Rx vits no.124-ferrous fum 1 tab PO DAILY@08 #90 tabs 05/27/20 Rx 27 mg iron-folic acid 800 mcg tablet ( Vitamin) Patient History Medical History (Updated 02/12/22 @ 22:20 by Lucas Ramirez MD) Depression Scoliosis Surgical History History of back surgery Social History Smoking Status: Never smoker Second Hand Exposure: No; Do You Dip or Chew Tobacco: No; Tobacco Cessation Education Requested by Patient: No Hx Alcohol Use: No Hx Substance Use: No Preferred Language: Citizen [place] Communication Ability: Effective [employer] Required: No Beliefs That Will Affect Care: None marital status: Single Current Living Situation: Spouse and Family Current Living Situation Comment: significant other and daughter current occupational status: employed Other Information That Helps Us Care for You: No Feels Safe at Home: Yes Safety Concerns: Feels Safe At This Time Assistive Devices: None OB History x2 [employer] History neg Review of Systems All systems reviewed & are unremarkable except as noted in HPI & below Physical Exam Constitutional: WD/WN, vitals as above Eyes: PERRL, conjunctivae normal, anicteric sclerae Respiratory: normal respiratory effort, lungs clear to auscultation Cardiovascular: RRR, no murmur, no edema Rate/Rhythm: regular rate and regular rhythm Gastrointestinal (Abdomen): Inspection/Auscultation: abdomen normal to inspection Musculoskeletal: Extremities: extremities normal to inspection Skin: no rashes, warm and dry Neurologic: patellar DTR's 2+ bilat, sensation intact Psychiatric: A+Ox3, euthymic affect Genitourinary: Manual OB Exam: + cervical dilation 6 cm, + cervical effacement 90% and + station -2 OB Exam Monitor Tracing: + external FHT monitor used, + external uterine monitor used, + category I and + normal FHT variability Results & Data ([facility]) Vital Signs (Past 12 Hours) Vital Signs Temp Pulse Resp BP Pulse Ox 02/12/22 22:14 101 H 97 02/12/22 22:09 79 99 02/12/22 22:04 82 98 02/12/22 21:59 83 100 02/12/22 21:54 90 99 02/12/22 21:07 36.6 C 78 20 129/66 Laboratory Results Laboratory Results - last 24 hr 02/12/22 21:49 WBC 10.03 RBC 3.32 L Hgb 10.1 L Hct 31.0 L MCV 93.4 MCH 30.4 MCHC 32.6 RDW Std Deviation 49.2 H RDW Coeff of Vin 14.6 H Plt Count 200 MPV 10.1 Code Status & VTE Plan VTE Prophylaxis Plan VTE Prophylaxis will be ordered: No Reason for no VTE drug order: Treatment not indicated Monitoring External Monitor Cat 1 with contractions
[2022-02-12] MEDS ORDERED: fentaNYL 2MCG/ML ROPIVACAINE 1.25MG/ML 100 ML BAG EPI PRN (22:41)
[2022-02-12] MEDS ORDERED: NALOXONE HCL 0.4 MG/1 ML VIAL/CARP IV PRN (22:41)
[2022-02-12] MEDS ORDERED: diphenhydrAMINE 50 MG/ML VIAL IV PRN (22:41)
[2022-02-12] MEDS ORDERED: NALOXONE HCL 1 MG in SODIUM CHLORIDE 0.9% 1000ML 1,000 ML IV PRN (22:41)
[2022-02-12] MEDS ORDERED: NALBUPHINE HCL INJ 10 MG/ML AMP IV PRN (22:41)
[2022-02-12] MEDS ORDERED: ONDANSETRON INJ 2 MG/ML 2 ML VIAL IV PRN (22:41)
[2022-02-12] MEDS ORDERED: ePHEDrine sulfate 50 MG/ML AMP IV PRN (22:41)
--- NOTE | 2022-02-12 22:45 | Labor Progress Brief Note ---
Date of Service February 12, 2022 Physical Exam Genitourinary: Manual OB Exam: + cervical dilation 7 cm and 8 cm, + cervical effacement 90% and + station 0 OB Exam Monitor Tracing: + external FHT monitor used, + external uterine monitor used, + category I and + normal FHT variability Results & Data ([facility]) Vital Signs (Past 12 Hours) Vital Signs Temp Pulse Resp BP Pulse Ox 02/12/22 22:40 96 H 98 02/12/22 22:35 83 98 02/12/22 22:30 36.6 C 79 20 97 02/12/22 22:31 62 110/63 02/12/22 22:25 79 98 02/12/22 22:14 101 H 97 02/12/22 22:09 79 99 02/12/22 22:04 82 98 02/12/22 21:59 83 100 02/12/22 21:54 90 99 02/12/22 21:07 36.6 C 78 20 129/66
--- NOTE | 2022-02-12 22:45 | Anesthesiology Consultation ---
Date of Service February 12, 2022 Assessment & Plan (1) Encounter for pre-operative examination: Chart Review Chart Review: Patient NOT seen in Pre Admission Testing and Acceptable Risk for Labor Epidural Consults Requested none History Height/Weight Height: 5 ft 3 in Weight: 64.41 kg Allergies Allergy/AdvReac Type Severity Reaction Status Date / Time pollen extracts Allergy Unknown sneezing Verified 05/26/20 10:38 running nose ragweed pollen Allergy Unknown itching Verified 05/26/20 10:38 eyes hydromorphone AdvReac Unknown vomiting Verified 05/26/20 10:38 Medications Home Medications Medication Instructions Recorded Confirmed Last Taken vit no.95-ferrous 1 tab PO DAILY 02/28/18 05/26/20 05/25/20 08:00 fumarate 28 mg-folic acid 800 mcg tablet () docusate sodium 100 mg capsule 100 mg PO DAILY@, #60 caps 05/27/20 Unknown ferrous sulfate 325 mg (65 mg 325 mg PO BID #60 tabs 05/27/20 Unknown iron) tablet,delayed release ibuprofen 600 mg tablet 600 mg PO Q4H PRN pain #30 tabs 05/27/20 Unknown vits no.124-ferrous fum 1 tab PO DAILY@08 #90 tabs 05/27/20 Unknown 27 mg iron-folic acid 800 mcg tablet ( Vitamin) Active Medications Generic Name Dose Route Start Last Admin Trade Name Freq PRN Reason Stop Dose Admin Lactated Ringer's 1,000 mls @ 125 mls/hr 02/12/22 21:29 02/12/22 21:40 Lr IV 02/14/22 21:28 125 mls/hr .Q8H PRN Administration L&D Protocol Protocol Past Medical History Medical History (Updated 02/12/22 @ 22:47 by Adriel Hurt MD) Depression Scoliosis Exercise / Class Metabolic Activity II 4-5 Yardwork/Stairs/Walk up hill Past Surgical History Surgical History History of back surgery Past Anesthesia History No Hx of Anesthesia Complications and No Family Hx of Anesthesia Complications History of PONV No Hx of PONV and No Hx of Motion Sickness Social History Smoking Status: Never smoker Do You Dip or Chew Tobacco: No Hx Alcohol Use: No Hx Substance Use: No substance use type: does not use Physical Exam Vital Signs Last Vital Signs Temp 36.6 C 02/12/22 22:30 Pulse 96 H 02/12/22 22:40 Resp 20 02/12/22 22:30 BP 110/63 02/12/22 22:31 Pulse Ox 98 02/12/22 22:40 Testing Laboratory Results 02/12/22 21:49
--- NOTE | 2022-02-13 00:48 | Delivery Summary ---
Vaginal Delivery Summary Date of Service February 13, 2022 Vaginal Delivery Summary Delivery Note live female BEN over intact perineum with Apgars 8/9 weight pending. Cord blood obtained followed by spontaneous delivery of intact placenta. No tears. EBL 100 ml. Final sponge and instrument count are correct. Mom and baby stable.
[2022-02-13] MEDS ORDERED: OXYTOCIN 30 UNITS/500 ML BAG IV PRN (02:41)
[2022-02-13] MEDS ORDERED: ACETAMINOPHEN 325 MG TAB PO PRN (02:41)
[2022-02-13] MEDS ORDERED: HYDROCORTISONE ACETATE 25 MG SUPP PR PRN (02:41)
[2022-02-13] MEDS ORDERED: BENZOCAINE 20% AER SPR 82.5 GM CAN EXT PRN (02:41)
[2022-02-13] MEDS ORDERED: DIPHTHERIA/TETANUS/PERTUSSIS 0.5 ML SYR/VIAL IM ONE (02:41)
[2022-02-13] MEDS: IBUPROFEN 600 MG TAB PO PRN ×3 (07:02→17:33)
[2022-02-13] MEDS: FERROUS SULFATE 325 MG TAB PO SCH (07:56)
[2022-02-13] MEDS: PRENATAL VITAMIN 1 TAB PO SCH (07:56)
[2022-02-13] MEDS: DOCUSATE SODIUM 100 MG CAP PO SCH ×2 (07:56→21:16)
[2022-02-13] MEDS ORDERED: PRENATAL VITAMIN 1 TAB PO SCH (08:00)
--- NOTE | 2022-02-13 10:20 | Anesthesia Procedure Note ---
Date of Service February 13, 2022 Anesthesia Post Epidural Note Vital Signs Vital Signs: Temp Pulse Resp BP Pulse Ox O2 Del Method 36.8 C 78 18 103/66 96 02/13/22 07:20 02/13/22 07:20 02/13/22 07:20 02/13/22 07:20 02/13/22 07:20 02/13/22 07:20 Pain Intensity Lower Abdomen: Pain Intensity: 2 Notes Mental Status: alert / awake / arousable and participated in evaluation Nausea / Vomiting: adequately controlled Pain: adequately controlled Airway Patency, RR, SpO2: stable & adequate BP & HR: stable & adequate Hydration State: stable & adequate Neuraxial Anesthesia: was administered and sensory block is resolving Anesthetic Complications: no major complications apparent and Pt Satisfied with anesthetic care Epidural: Removed without complications and With tip intact
[2022-02-14 07:38] LABS: Hematocrit (blood only) 33.8 % (34.1-44.9); Hemoglobin 10.8 g/dl (12.0-16.0); Mean Corpuscular Volume 93.9 fL (80.0-100.0); Mean Platelet Volume 10.3 fL (9.4-12.3); Platelet Count 212 K/uL (130-400); RDW Coefficient of Variation 14.8 % (11.5-14.5); RDW Standard Deviation 50.1 fL (36.4-46.3)
[2022-02-14] MEDS: DOCUSATE SODIUM 100 MG CAP PO SCH (08:38)
[2022-02-14] MEDS: FERROUS SULFATE 325 MG TAB PO SCH (08:39)
[2022-02-14] MEDS: PRENATAL VITAMIN 1 TAB PO SCH (08:39)
[2022-02-14] MEDS: IBUPROFEN 600 MG TAB PO PRN (08:39)
--- NOTE | 2022-02-14 10:14 | Obstetrical Progress Note ---
Date of Service February 14, 2022 Subjective Ambulation: ambulating normally Voiding: no voiding problems Passing Gas:: Yes Diet Tolerance:: regular diet Lochia:: Small Feeding Type:: breast feeding Current Pain Level(1-10): 0 doing well. plans for d/c today Physical Exam Constitutional WD/WN, vitals as above Gastrointestinal (Abdomen) normal bowel sounds, soft, nontender, no hepatosplenomegaly Musculoskeletal Extremities: extremities normal to inspection Skin no rashes, warm and dry Neurologic patellar DTR's 2+ bilat, sensation intact Psychiatric A+Ox3, euthymic affect Results & Data ([facility]) Vital Signs (Past 12 Hours) Vital Signs Temp Pulse Resp BP Pulse Ox O2 Del Method 02/14/22 00:10 36.7 C 74 18 113/61 97 Room Air Laboratory Results 02/12/22 02/12/22 02/14/22 21:49 Unknown 07:12 WBC 10.03 11.30 H RBC 3.32 L 3.60 L Hgb 10.1 L 10.8 L Hct 31.0 L 33.8 L MCV 93.4 93.9 MCH 30.4 30.0 MCHC 32.6 32.0 RDW Std Deviation 49.2 H 50.1 H RDW Coeff of Vin 14.6 H 14.8 H Plt Count 200 212 MPV 10.1 10.3 SARS-CoV-2, RNA, NAAT NEGATIVE
[2022-02-14] MEDS ORDERED: bisacodyL 5 MG TABEC PO SCH (20:00)
[2022-02-15] MEDS ORDERED: bisacodyL 10 MG SUPP PR PRN
== END 2022-02-14 11:55 | disposition home or self-care (01) | DRG 807 ==
LOC: OPB 20:54 → 4S1 20:56 → 4E2 02-13 07:00